=== PATIENT | female | born 1970 | race Caucasian/White ===

== ENCOUNTER 2021-01-04 22:24 | Emergency (ER) | payer BC ==
--- NOTE | 2021-01-04 22:39 | ERPHSYRPT ---
- History of Present Illness Time Seen by Provider: 01/04/21 22:39 Historian: patient, family Physician History: This is a 50-year-old white female who is a patient of Dr. Carina Mills and presents with 4-day history of intermittent burning from the throat to the chest to the epigastric region. Patient has a history of GERD as well as anxiety and depression. She started on Ozempic 2 weeks ago. She has no diagnosed cardiac history in the past. However, she does smoke 1/2 to 2 packs of cigarettes per day. In June 2020 patient under went an echocardiogram which showed a normal cardiac ejection fraction of 61%. In addition, her left ventricle is christos normally. The echocardiogram did show mild mitral regurgitation, mild aortic regurgitation, mild tricuspid regurgitation, and mild pulmonary hypertension. Patient has never seen a miller head. Timing/Duration: day(s) (4), intermittent, worse Quality: burning Abdominal Pain Onset Location: epigastric, other (The burning sensation started in her throat followed by substernal chest and then epigastrium) Severity of Pain-Max: mild (To moderate) Severity of Pain-Current: mild (To moderate) Modifying Factors: Improves With: nothing Associated Symptoms: heartburn, No chest pain Previous symptoms: no prior history Allergies/Adverse Reactions: No Known Drug Allergies Allergy (Unverified 01/04/21 22:40) Home Medications: Bupropion HCl [Bupropion HCl ER] 300 mg PO DAILY 01/04/21 [History] Omeprazole 40 mg PO DAILY 01/04/21 [History] Semaglutide [Ozempic] 0.25 mg SQ WEEKLY 01/04/21 [History] Travel Risk - International Travel Have you traveled outside of the country in past 3 weeks: No - Coronavirus Screening Are you exhibiting any of the following symptoms?: No Close contact with a COVID-19 positive Pt in past 14-21 Days: No - Review of Systems Constitutional: No Symptoms Eyes: No Symptoms Ears, Nose, & Throat: No Symptoms Respiratory: No Symptoms Cardiac: Chest Pain (Scribed is burning in her chest) Abdominal/Gastrointestinal: Abdominal Pain (Epigastric burning) Genitourinary Symptoms: No Symptoms Musculoskeletal: No Symptoms Skin: No Symptoms Neurological: No Symptoms Psychological: No Symptoms Endocrine: No Symptoms Hematologic/Lymphatic: No Symptoms Immunological/Allergic: No Symptoms All Other Systems: Reviewed and Negative - Past Medical History Pertinent Past Medical History: Yes - Past Surgical History Past Surgical History: Yes - Nursing Vital Signs Nursing Vital Signs: Initial Vital Signs Pulse Rate 94 H 01/04/21 22:25 Respiratory Rate 18 01/04/21 22:25 Blood Pressure 169/112 01/04/21 22:25 O2 Sat by Pulse Oximetry 99 01/04/21 22:25 Pain Scale Pain Intensity 8 - Physical Exam General Appearance: no apparent distress, alert, anxiety Eye Exam: PERRL/EOMI, eyes nml inspection Ears, Nose, Throat Exam: normal ENT inspection, moist mucous membranes Neck Exam: normal inspection, non-tender, supple, full range of motion Respiratory Exam: normal breath sounds, chest tenderness, lungs clear, respiratory distress, airway intact Cardiovascular Exam: regular rate/rhythm, normal heart sounds, normal peripheral pulses Gastrointestinal/Abdomen Exam: soft, normal bowel sounds, No tenderness Pelvic Exam: not done Rectal Exam: not done Back Exam: normal inspection, normal range of motion, No CVA tenderness, No vertebral tenderness Extremity Exam: normal inspection, normal range of motion, pelvis stable Neurologic Exam: alert, oriented x 3, cooperative, breastfeeding educator II-XII nml as tested, normal mood/affect, nml cerebellar function, nml station & gait, sensation nml Skin Exam: normal color, warm, dry Lymphatic Exam: No adenopathy SpO2 Interpretation: normal O2 Delivery: Room Air - Course Nursing assessment & vital signs reviewed: Yes EKG Interpreted by Me: RATE (72), Sinus Rhythm, NORMAL AXIS, NORMAL INTERVALS, NORMAL QRS, NORMAL ST-T, Other (No acute ST elevation. There is no comparison EKG available. The report of this EKG states there is severe global ischemia. I do not see ischemic changes that are acute on this EKG.) Ordered Tests: Active Orders 24 hr Category Date Time Status Thread Grinder Tool STAT Care 01/04/21 23:05 Active EKG-ER Only STAT Care 01/04/21 23:05 Active IV Insertion STAT Care 01/04/21 23:05 Active Pulse Oximetry (ED) STAT Care 01/04/21 23:05 Active CHEST 1 VIEW (PORTABLE) Stat Exams 01/04/21 23:05 Taken CBC W DIFF Stat Lab 01/04/21 23:16 Completed CMP Stat Lab 01/04/21 23:16 Completed D-DIMER QUANTITATIVE Stat Lab 01/04/21 23:16 Completed NT PRO BNP Stat Lab 01/04/21 23:16 Completed PROTIME WITH INR Stat Lab 01/04/21 23:16 Completed TROPONIN Q3H Lab 01/04/21 23:15 Completed TROPONIN Q3H Lab 01/05/21 02:15 Ordered TROPONIN Q3H Lab 01/05/21 05:15 Ordered TROPONIN Q3H Lab 01/05/21 08:15 Ordered TROPONIN Q3H Lab 01/05/21 11:15 Ordered Medication Summary Discontinued Medications Generic Name Dose Route Start Last Admin Trade Name Jose Eliasq PRN Reason Stop Dose Admin Al Hydrox/Mg Hydrox/Simethicone Confirm 01/04/21 23:07 Maalox Es 30 Ml Unit Dose Administered 01/04/21 23:08 Dose 30 ml .ROUTE .STK-MED ONE Aspirin 324 mg 01/04/21 23:05 01/04/21 23:10 Baby Aspirin 81 Mg Chew PO 01/04/21 23:06 324 mg STAT ONE Administration Aspirin Confirm 01/04/21 23:05 Baby Aspirin 81 Mg Chew Administered 01/04/21 23:06 Dose 324 mg .ROUTE .STK-MED ONE Lidocaine HCl Confirm 01/04/21 23:06 Xylocaine Hcl Viscous * Administered 01/04/21 23:07 Dose 15 ml .ROUTE .STK-MED ONE Magnesium Hydroxide 45 ml 01/04/21 23:06 01/04/21 23:12 Gi Cocktail 45 Ml (Maalox/Lidocaine) PO 01/04/21 23:07 45 ml STAT ONE Administration Morphine Sulfate 4 mg 01/05/21 00:11 01/05/21 00:16 Morphine Sulfate 4 Mg Inj IV 01/05/21 00:12 4 mg STAT ONE Administration Morphine Sulfate Confirm 01/05/21 00:14 Morphine Sulfate 4 Mg Inj Administered 01/05/21 00:15 Dose 4 mg .ROUTE .STK-MED ONE Nitroglycerin 0.4 mg 01/04/21 23:05 01/04/21 23:12 Nitrostat 0.4 Mg (Ed) SL 01/04/21 23:06 0.4 mg STAT ONE Administration Ondansetron HCl 4 mg 01/05/21 00:11 01/05/21 00:16 Zofran 4 Mg/2 Ml Vial IV 01/05/21 00:12 4 mg STAT ONE Administration Ondansetron HCl Confirm 01/05/21 00:14 Zofran 4 Mg/2 Ml Vial Administered 01/05/21 00:15 Dose 4 mg .ROUTE .STK-MED ONE Lab/Rad Data: Laboratory Result Diagrams 01/04/21 23:16 01/04/21 23:16 Laboratory Results 01/04/21 01/04/21 01/04/21 Range/Units 23:16 23:16 23:16 WBC 11.1 H (4.0-10.5) K/mm3 RBC 5.11 (4.1-5.4) M/mm3 Hgb 15.2 (12.0-16.0) gm/dl Hct 47.7 H (35-47) % MCV 93.3 (78-100) fl MCH 29.7 (26-32) pg MCHC 31.9 L (32-36) g/dl RDW 14.1 H (11.5-14.0) % Plt Count 278 (150-450) K/mm3 MPV 10.0 (7.5-11.0) fl Gran % 56.8 (36.0-66.0) % Eos # (Auto) 0.18 (0-0.5) Absolute Lymphs (auto) 3.62 (1.0-4.6) Absolute Monos (auto) 0.94 (0.0-1.3) Lymphocytes % 32.7 (24.0-44.0) % Monocytes % 8.5 (0.0-12.0) % Eosinophils % 1.6 (0.00-5.0) % Basophils % 0.4 (0.0-0.4) % Absolute Granulocytes 6.30 (1.4-6.9) Basophils # 0.04 (0-0.4) PT 11.6 (9.4-12.5) SECONDS INR 0.98 (0.8-3.0) D-Dimer 446 (215-500) ng/mL Sodium 138 (137-145) mmol/L Potassium 3.5 (3.5-5.1) mmol/L Chloride 102 (98-107) mmol/L Carbon Dioxide 27 (22-30) mmol/L Anion Gap 13.0 (5-15) MEQ/L BUN 7 (7-17) mg/dL Creatinine 0.80 (0.52-1.04) mg/dL Estimated GFR > 60.0 ML/MIN Glucose 105 (74-106) mg/dL Calcium 9.3 (8.4-10.2) mg/dL Total Bilirubin 0.20 (0.2-1.3) mg/dL AST 32 (14-36) U/L ALT 28 (0-35) U/L Alkaline Phosphatase 102 (38-126) U/L Troponin I (0.000-0.034) ng/mL NT-Pro-B Natriuret Pep 612 (0-900) pg/mL Serum Total Protein 7.6 (6.3-8.2) g/dL Albumin 4.3 (3.5-5.0) g/dL 01/04/21 Range/Units 23:15 WBC (4.0-10.5) K/mm3 RBC (4.1-5.4) M/mm3 Hgb (12.0-16.0) gm/dl Hct (35-47) % MCV (78-100) fl MCH (26-32) pg MCHC (32-36) g/dl RDW (11.5-14.0) % Plt Count (150-450) K/mm3 MPV (7.5-11.0) fl Gran % (36.0-66.0) % Eos # (Auto) (0-0.5) Absolute Lymphs (auto) (1.0-4.6) Absolute Monos (auto) (0.0-1.3) Lymphocytes % (24.0-44.0) % Monocytes % (0.0-12.0) % Eosinophils % (0.00-5.0) % Basophils % (0.0-0.4) % Absolute Granulocytes (1.4-6.9) Basophils # (0-0.4) PT (9.4-12.5) SECONDS INR (0.8-3.0) D-Dimer (215-500) ng/mL Sodium (137-145) mmol/L Potassium (3.5-5.1) mmol/L Chloride (98-107) mmol/L Carbon Dioxide (22-30) mmol/L Anion Gap (5-15) MEQ/L BUN (7-17) mg/dL Creatinine (0.52-1.04) mg/dL Estimated GFR ML/MIN Glucose (74-106) mg/dL Calcium (8.4-10.2) mg/dL Total Bilirubin (0.2-1.3) mg/dL AST (14-36) U/L ALT (0-35) U/L Alkaline Phosphatase (38-126) U/L Troponin I 1.230 H* (0.000-0.034) ng/mL NT-Pro-B Natriuret Pep (0-900) pg/mL Serum Total Protein (6.3-8.2) g/dL Albumin (3.5-5.0) g/dL - Progress Progress: improved, pain not gone completely, re-examined Progress Note: 01/05/21 00:20 Chest x-ray shows no acute cardiopulmonary process. Medical decision making: This patient did not have acute ST elevation on her EKG. There might be a single block ST depression in lead II. I do not maryam reciate depression in any other leads. Patient continues to have throat pain, chest pain epigastric pain that she describes as burning. This is present despite nitroglycerin, aspirin, GI cocktail, and morphine. Patient has some hypertension as well. Patient's cardiac troponin returned at 1.230. I spoke with [facility] emergency room departments Dr. Matthew. I reviewed the patient history, condition, physical exam, EKG findings and lab results with him as well as chest x-ray results. He accepts the patient in transfer. Counseled pt/family regarding: lab results, diagnosis, need for follow-up, rad results - Departure Departure Disposition: Transfer Clinical Impression: Chest pain, Elevated troponin, Hypertension Condition: Fair Critical Care Time: Yes Critical Care Time(excluding separately billable procedures): Critical 30-74 mins Referrals: CARINA MILLS [Primary Care Provider] -
[2021-01-04] MEDS ORDERED: Nitrostat 0.4 MG (ED) SL ONE (23:05)
[2021-01-04] MEDS ORDERED: BABY ASPIRIN 81 MG CHEW ONE (23:05)
[2021-01-04] MEDS ORDERED: BABY ASPIRIN 81 MG CHEW PO ONE (23:05)
[2021-01-04] MEDS ORDERED: GI COCKTAIL 45 ML (Maalox/Lidocaine) PO ONE (23:06)
[2021-01-04] MEDS ORDERED: XYLOCAINE HCl Viscous ONE (23:06)
[2021-01-04] MEDS ORDERED: MAALOX ES 30 ML UNIT DOSE ONE (23:07)
[2021-01-04 23:20] LABS: BASOPHIL % 0.4 % (0.0-0.4); Basophil (Absolute #) 0.04 (0-0.4); Eosinophil % 1.6 % (0.00-5.0); Eosinophil (Absolute #) 0.18 (0-0.5); Hematocrit 47.7 % (35-47); Hemoglobin 15.2 gm/dl (12.0-16.0); Lymphocyte (Absolute #) 3.62 (1.0-4.6); Lymphocytes % 32.7 % (24.0-44.0); Mean Cell Volume 93.3 fl (78-100); Mean Corpuscular Hemoglobin 29.7 pg (26-32); Mean Corpuscular Hgb Concent. 31.9 g/dl (32-36); Monocyte (Absolute #) 0.94 (0.0-1.3); Monocytes % 8.5 % (0.0-12.0); Neutrophil % 56.8 % (36.0-66.0); Platelet Count 278 K/mm3 (150-450); Red Blood Count 5.11 M/mm3 (4.1-5.4); Red Cell Distribution Width 14.1 % (11.5-14.0); White Blood Count 11.1 K/mm3 (4.0-10.5)
[2021-01-04 23:26] LABS: INR 0.98 (0.8-3.0); PROTIME 11.6 SECONDS (9.4-12.5)
[2021-01-04 23:39] LABS: ALBUMIN 4.3 g/dL (3.5-5.0); ALKALINE PHOSPHATASE 102 U/L (38-126); BLOOD UREA NITROGEN 7 mg/dL (7-17); CHLORIDE 102 mmol/L (98-107); Calcium 9.3 mg/dL (8.4-10.2); Carbon Dioxide 27 mmol/L (22-30); EST GLOMERULAR FILTRATION RATE > 60.0 ML/MIN; Glucose 105 mg/dL (74-106); NT PRO BNP 612 pg/mL (0-900); Potassium 3.5 mmol/L (3.5-5.1); SGOT/AST 32 U/L (14-36); SGPT/ALT 28 U/L (0-35); SODIUM 138 mmol/L (137-145); Total Protein 7.6 g/dL (6.3-8.2)
[2021-01-05] MEDS ORDERED: Zofran 4 MG/2 ML VIAL IV ONE (00:11)
[2021-01-05] MEDS ORDERED: MORPHINE SULFATE 4 MG INJ IV ONE (00:11)
[2021-01-05] MEDS ORDERED: MORPHINE SULFATE 4 MG INJ ONE (00:14)
[2021-01-05] MEDS ORDERED: Zofran 4 MG/2 ML VIAL ONE (00:14)
[2021-01-05 00:30] VITALS: O2SAT 98
[2021-01-05 01:19] VITALS: BP 153/94; PULSE 75
--- NOTE | 2021-01-05 06:45 | XRAY ---
Indication: Chest pain. Comparison: None Portable chest demonstrates normal heart, lungs, and bony thorax.
== END 2021-01-05 01:10 | disposition short-term general hospital (02) ==
LOC: ED 22:24
DX: R07.9 Chest pain, unspecified (principal); I10 Essential (primary) hypertension; R79.89 Other specified abnormal findings of blood chemistry; Z79.899 Other long term (current) drug therapy
CPT/HCPCS: 36000; 36415; 71045; 80053; 83880; 84484; 85025; 85379; 85610; 93005; 93041; 94760; 96374; 96375; 99285; 99291; J2270; J2405; A9270-GY

== ENCOUNTER 2021-12-23 11:40 | Emergency (ER) | payer BC ==
--- NOTE | 2021-12-23 11:55 | ERPHSYRPT ---
- History of Present Illness Time Seen by Provider: 12/23/21 11:55 Source: patient Exam Limitations: no limitations Patient Subjective Stated Complaint: Pt states "I was using an electric multiple knife edge trimmer operator and I think I cut my finger off." Triage Nursing Assessment: Pt presented alert and oriented X 3, skin pwd. pt ambulates with an upright steady gait. Pt has laceration noted to tip of left index finger. Finger is attached, bleeding controlled with pressure bandage. Physician History: This is a 51-year-old right-handed white female patient of Dr. Gene Ha who cut her left index fingertip with electric multiple knife edge trimmer operator prior to arrival. Patient is in need of a tetanus update vaccination. Patient is on Brilinta. She has hyperlipidemia, hypertension and gastroesophageal reflux disease. Occurred: just prior to arrival Method of Injury: other (Electric hedge tremor) Quality: constant, throbbing Severity of Pain-Max: moderate Severity of Pain-Current: moderate Extremities Pain Location: 2nd finger: left Modifying Factors: Improves With: movement Associated Symptoms: none Allergies/Adverse Reactions: No Known Drug Allergies Allergy (Verified 12/23/21 11:47) Home Medications: Omeprazole 40 mg PO DAILY 01/04/21 [History] Semaglutide [Ozempic] 0.25 mg SQ WEEKLY 01/04/21 [History] buPROPion HCL [Bupropion HCl ER] 300 mg PO DAILY 01/04/21 [History] Aspirin [Aspirin EC] 81 mg PO DAILY 12/23/21 [History] Atorvastatin Calcium [Lipitor] 40 mg PO DAILY 12/23/21 [History] Metoprolol Tartrate 25 mg [Lopressor 25MG Tab] 25 mg PO DAILY 12/23/21 [H istory] PARoxetine HCl [Paxil] 10 mg PO DAILY 12/23/21 [History] Ticagrelor [Brilinta] 90 mg PO DAILY 12/23/21 [History] Hx Tetanus, Diphtheria Vaccination/Date Given: No Hx Influenza Vaccination/Date Given: No Hx Pneumococcal Vaccination/Date Given: No Immunizations Up to Date: Yes Travel Risk - International Travel Have you traveled outside of the country in past 3 weeks: No - Coronavirus Screening Are you exhibiting any of the following symptoms?: No Close contact with a COVID-19 positive Pt in past 14-21 Days: No - Vaccine Status Have you recieved a Covid-19 vaccination: Yes Renal Case Manager: Syncronex - Review of Systems Constitutional: No Symptoms Eyes: No Symptoms Ears, Nose, & Throat: No Symptoms Respiratory: No Symptoms Cardiac: No Symptoms Abdominal/Gastrointestinal: No Symptoms Genitourinary Symptoms: No Symptoms Musculoskeletal: Injury (Left fingertip index finger) Skin: Other (Macerated, stellate laceration left index finger tip) Neurological: No Symptoms Psychological: No Symptoms Endocrine: No Symptoms Hematologic/Lymphatic: No Symptoms Immunological/Allergic: No Symptoms All Other Systems: Reviewed and Negative - Past Medical History Pertinent Past Medical History: Yes GI Medical History: GERD Psycho-Social History: Anxiety, Depression - Past Surgical History Past Surgical History: Yes Other Surgical History: Carpel tunnel surgery - Social History Smoking Status: Current every day smoker How long have you smoked: years Exposure to second hand smoke: No Drug Use: none Patient Lives Alone: No - Nursing Vital Signs Nursing Vital Signs: Initial Vital Signs Temperature 97.5 F 12/23/21 11:41 Pulse Rate 92 H 12/23/21 11:41 Respiratory Rate 26 H 12/23/21 11:41 Blood Pressure 162/92 12/23/21 11:41 O2 Sat by Pulse Oximetry 100 12/23/21 11:41 Pain Scale Pain Intensity 8 - Physical Exam General Appearance: no apparent distress, alert, anxiety Eyes, Ears, Nose, Throat Exam: normal ENT inspection, moist mucous membranes Neck Exam: normal inspection, non-tender, supple, full range of motion Cardiovascular/Respiratory Exam: chest non-tender, no respiratory distress Abdominal Exam: non-tender Back Exam: normal inspection Shoulder Exam: normal inspection, non-tender, no evidence of injury, normal ROM Elbow/Forearm Exam: normal inspection, non-tender, no evidence of injury, normal ROM Wrist Exam: normal inspection, non-tender, no evidence of injury, normal ROM Hand Exam: bone tenderness, laceration, limited ROM, nail injury, soft tissue tenderness Neuro/Tendon Exam: normal motor functions, normal tendon functions, responds to pain, no evidence tendon injury Mental Status Exam: alert, oriented x 3, cooperative Skin Exam: laceration (Lacerated stellate laceration tip of left index finger tip) SpO2 Interpretation: normal SpO2: 100 O2 Delivery: Room Air - Course Nursing assessment & vital signs reviewed: Yes Ordered Tests: Active Orders 24 hr Category Date Time Status HAND (MINIMUM 3 VIEWS) Stat Exams 12/23/21 12:02 Completed Medication Summary Discontinued Medications Generic Name Dose Route Start Last Admin Trade Name Thomas PRN Reason Stop Dose Admin Cefazolin Sodium 1 g 12/23/21 12:13 Cefazolin Sodium 1 Gm Vial IM 12/23/21 12:14 STAT ONE Cefazolin Sodium Confirm 12/23/21 12:17 Cefazolin Sodium 1 Gm Vial Administered 12/23/21 12:18 Dose 1 g .ROUTE .STK-MED ONE Diphtheria/Tetanus/Acell Pertussis 0.5 ml 12/23/21 12:13 Tdap --Diph,Pertuss(Acell),Tet Vac/Pf 0.5 Ml Vial IM 12/23/21 12:14 .ONCE ONE Diphtheria/Tetanus/Acell Pertussis Confirm 12/23/21 12:18 Tdap --Diph,Pertuss(Acell),Tet Vac/Pf 0.5 Ml Vial Administered 12/23/21 12:19 Dose 0.5 ml IM .STK-MED ONE Oxycodone/Acetaminophen 1 tab 12/23/21 12:13 Oxycodone / Apap 10/325 Mg 1 Tablet PO 12/23/21 12:14 STAT STA Oxycodone/Acetaminophen Confirm 12/23/21 12:17 Oxycodone / Apap 10/325 Mg 1 Tablet Administered 12/23/21 12:18 Dose 1 tab .ROUTE .STK-MED ONE - Progress Progress: improved, pain not gone completely Progress Note: 12/23/21 12:33 X-ray left hand shows distal second phalanx displaced tuft fracture and small anterior cortical fracture. 12/23/21 12:33 Medical decision making: I spoke with hand surgeon Dr. Kaminski and he reviewed the x-rays and photos I obtained from the patient's laceration/fracture. I obtained the patient's permission to do so prior to taking the photos. I then deleted the photos from my phone after sending to Dr. Kaminski. Dr. Kaminski will see the patient today at 3 PM. I will have the patient's stop her aspirin and Brilinta. She will be given a prescription for Keflex and oxycodone that I will send to the pharmacy for her. Counseled pt/family regarding: diagnosis, need for follow-up, rad results - Departure Departure Disposition: Home Clinical Impression: Laceration of finger of left hand, Open fracture of finger, distal phalanx Condition: Stable Critical Care Time: No Referrals: JEFRY PATIÑO [Primary Care Provider] - Follow up/PCP as directed Additional Instructions: Go to Dr. Kaminski's office today at 3 PM in [facility]. Follow the directions that were provided to you. Keep the bandage in place until you see him at his office. Stop your aspirin and Brilinta and do not restart until you are instructed to do so by him. Prescriptions: Oxycodone HCl/Acetaminophen [Percocet 5-325 mg Tablet] 1 each PO Q8H PRN PRN #6 tablet MDD 3 PRN Reason: Moderate To Severe Pain Cephalexin Mh 500 mg [Keflex 500 mg] 500 mg PO TID #21 cap
[2021-12-23] MEDS ORDERED: OXYCODONE-ACETAMINOPHEN 10-325 PO STA (12:13)
[2021-12-23] MEDS ORDERED: KEFZOL 1 GM IM ONE (12:13)
[2021-12-23] MEDS ORDERED: Adacel Vial IM ONE ×2 (12:13→12:18)
[2021-12-23] MEDS ORDERED: KEFZOL 1 GM ONE (12:17)
[2021-12-23] MEDS ORDERED: OXYCODONE-ACETAMINOPHEN 10-325 ONE (12:17)
--- NOTE | 2021-12-23 12:26 | XRAY ---
Indication: Index finger laceration. Comparison: None 3 view left hand demonstrates bandage material overlying 2nd finger. Distal 2nd phalanx demonstrates displaced tuft fracture and also small anterior cortical fracture. No other bony, articular, or soft tissue abnormalities.
[2021-12-23 12:44] VITALS: BP 165/79; PULSE 86; O2SAT 98
== END 2021-12-23 12:48 | disposition home or self-care (01) ==
LOC: ED 11:40
DX: S62.631B Displaced fracture of distal phalanx of left index finger, initial encounter for open fracture (principal); W31.89XA Contact with other specified machinery, initial encounter; Y93.H2 Activity, gardening and landscaping; M79.645 Pain in left finger(s); E78.5 Hyperlipidemia, unspecified; I10 Essential (primary) hypertension; Z72.0 Tobacco use; Z79.02 Long term (current) use of antithrombotics/antiplatelets; Z79.899 Other long term (current) drug therapy; Z79.891 Long term (current) use of opiate analgesic
CPT/HCPCS: 73130; 90471; 90715; 96372; 99284; J0690; A9270-GY